=== PATIENT | male | born 1960 | race Caucasian/White ===

== ENCOUNTER 2018-02-19 13:51 | Emergency (ER) | payer OTHER ==
[2018-02-19] MEDS ORDERED: XYLOCAINE 1% HCL 20 ML MDV IJ ONE (14:16)
[2018-02-19] MEDS ORDERED: Adacel Vial IM ONE ×2 (14:16→14:23)
[2018-02-19] MEDS ORDERED: BACIGUENT PACKET TP ONE (14:16)
[2018-02-19] MEDS ORDERED: XYLOCAINE 1% HCL 20 ML MDV ONE ×2 (14:18→15:03)
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
[2018-02-19] MEDS ORDERED: BACIGUENT PACKET ONE (15:19)
[2018-02-19 15:32] VITALS: BP 141/88; O2SAT 95
[2018-02-19 16:04] VITALS: PULSE 80
== END 2018-02-19 16:02 | disposition home or self-care (01) ==
LOC: ED 13:51
PROC: 0HQ1XZZ Repair Face Skin, External Approach (ICD-10-PCS; principal; 2018-02-19)
PROC: 0CQ0XZZ Repair Upper Lip, External Approach (ICD-10-PCS; 2018-02-19)
DX: S01.511A Laceration without foreign body of lip, initial encounter (principal); S01.81XA Laceration without foreign body of other part of head, initial encounter; W29.8XXA Contact with other powered hand tools and household machinery, initial encounter; Y93.H3 Activity, building and construction
CPT/HCPCS: 12014; 90471; 90715; 99284; 99291; A9270-GY

== ENCOUNTER 2019-07-24 05:34 | Day surgery (SDC) | payer OTHER ==
[2019-07-24] MEDS ORDERED: DIPRIVAN 200 MG/20 ML IV ONE ×2 (06:55→07:55)
[2019-07-24] MEDS ORDERED: Ketamine HCl 50 MG/ML ONE (06:56)
[2019-07-24] MEDS ORDERED: Lactated Ringers 1,000 ML IV SCH (07:00)
[2019-07-24 08:39] VITALS: O2SAT 95
[2019-07-24 08:46] VITALS: BP 120/77; PULSE 74
--- NOTE | 2019-07-24 09:59 | OP ---
SURGERY DATE/TIME: 07/24/2019 0742 PREOPERATIVE DIAGNOSIS: Screening exam. POSTOPERATIVE DIAGNOSIS: Normal colon. PROCEDURE: Colonoscopy. SURGEON: Dr. Kruse. ANESTHESIA: MAC. Medications given by anesthesia department. HISTORY: The patient is a 59 year-old white male patient presenting now for his first screening colonoscopy. The patient was appraised of the risks of the procedure including the risk of perforation, phlebitis, untoward reaction to medication, bleeding and missed lesions. The patient verbalized his understanding and desired to have the procedure performed. DESCRIPTION OF PROCEDURE: The patient was given the medications by the anesthesia department. He had continuous pulse oximetry, ECG monitoring, intermittent blood pressure monitoring and tidal CO2 monitoring during the examination. He was placed in the left lateral decubitus position. A digital rectal examination was performed and revealed mild external hemorrhoids, normal anal sphincter tone, no masses and normal prostate. The flexible Olympus pediatric colonoscope was used to intubate the rectum. A view of the colon was developed sequentially to the cecum. Upon insertion and withdrawal, including a retroflex view in the rectum, no mucosal lesions were encountered. The scope was removed from the patient who tolerated the procedure well and was sent back to OP recovery in good condition. The prep was noted to be good.
== END 2019-07-24 08:55 | disposition home or self-care (01) ==
LOC: SDC 05:34
PROVIDERS: ATTEND Family Medicine
DX: Z12.11 Encounter for screening for malignant neoplasm of colon (principal); K64.4 Residual hemorrhoidal skin tags
CPT/HCPCS: 94250; J2704

== ENCOUNTER 2020-10-27 18:23 | Emergency (ER) | payer OTHER ==
--- NOTE | 2020-10-27 18:39 | ERPHSYRPT ---
- History of Present Illness Time Seen by Provider: 10/27/20 18:38 Source: patient Exam Limitations: no limitations Physician History: This is a 60-year-old white male who presents with worsening shortness of breath, cough and fever for the last 2 days. Patient is a [id number] smoker. He continues to smoke daily. Patient was seen by his primary care physician, Dr. Ambrocio, on 10/15/2020 and a chest x-ray was obtained which showed a right apical masslike opacity present. On 10/21/2020 patient underwent a CAT scan of the chest which showed a multiloculated right apical masslike opacity with fluid leveling which can be seen with post primary tuberculosis and pulmonary bacterial abscess/cavity. Malignancy can have the same appearance. Patient was scheduled to see a b2b outside sales representative on 11/03/2020. Patient was given a prescription for a Z-Adiel and steroids. This helped him tremendously. However in the last 2 days his symptoms have recurred worsened. Patient presents with fever mild tachycardia. He does not want to be admitted in the hospital per his report Timing/Duration: day(s) Activities at Onset: activity Severity of Dyspnea-Max: mild Severity of Dyspnea-Current: mild Possible Cause: occasional episodes Modifying Factors: Improves With: activity, coughing Associated Symptoms: chest pain/discomfort, productive cough Allergies/Adverse Reactions: shrimp Adverse Reaction (Intermediate, Verified 10/27/20 18:41) Stomach Pain acetaminophen [From Vicodin] Adverse Reaction (Mild, Verified 10/27/20 18:41) Nausea and Vomiting hydrocodone [From Vicodin] Adverse Reaction (Mild, Verified 10/27/20 18:41) Nausea and Vomiting Home Medications: Tamsulosin HCl 0.4 mg [Flomax 0.4 MG] 0.4 mg PO DAILY 07/15/19 [History] Albuterol 2.5 mg/0.5 ml [PROVENTIL Solution 2.5 MG/0.5 ML] 2.5 mg IH Q4HPRN PRN 10/27/20 [History] Hx Tetanus, Diphtheria Vaccination/Date Given: No Hx Influenza Vaccination/Date Given: No Hx Pneumococcal Vaccination/Date Given: No Travel Risk - International Travel Have you traveled outside of the country in past 3 weeks: No - Coronavirus Screening Are you exhibiting any of the following symptoms?: No Close contact with a COVID-19 positive Pt in past 14-21 Days: No - Review of Systems Constitutional: Fever Eyes: No Symptoms Ears, Nose, & Throat: No Symptoms Respiratory: Cough, Dyspnea on Exertion (LEGER) Cardiac: Chest Pain (Bilateral anterior chest wall. No radiation) Abdominal/Gastrointestinal: No Symptoms Genitourinary Symptoms: No Symptoms Musculoskeletal: No Symptoms Skin: No Symptoms Neurological: No Symptoms Psychological: No Symptoms Endocrine: No Symptoms Hematologic/Lymphatic: No Symptoms Immunological/Allergic: No Symptoms All Other Systems: Reviewed and Negative - Past Medical History Pertinent Past Medical History: Yes Neurological History: No Pertinent History ENT History: No Pertinent History Cardiac History: Hypertension Respiratory History: No Pertinent History Endocrine Medical History: No Pertinent History Musculoskeletal History: Arthritis GI Medical History: No Pertinent History History: No Pertinent History Psycho-Social History: No Pertinent History Male Reproductive Disorders: Prostate Problems - Past Surgical History Past Surgical History: No Neuro Surgical History: No Pertinent History Cardiac: No Pertinent History Respiratory: No Pertinent History Gastrointestinal: No Pertinent History Genitourinary: No Pertinent History Musculoskeletal: No Pertinent History Male Surgical History: No Pertinent History - Social History Smoking Status: Current every day smoker How long have you smoked: 41yrs Exposure to second hand smoke: Yes Drug Use: none Patient Lives Alone: No - Nursing Vital Signs Nursing Vital Signs: Initial Vital Signs Temperature 100.2 F 10/27/20 18:26 Pulse Rate 114 H 10/27/20 18:26 Respiratory Rate 18 10/27/20 18:26 Blood Pressure 142/85 10/27/20 18:26 O2 Sat by Pulse Oximetry 95 10/27/20 18:26 Pain Scale Pain Intensity 0 - Physical Exam General Appearance: no apparent distress, alert, anxiety Eye Exam: PERRL/EOMI, eyes nml inspection Ears, Nose, Throat Exam: hearing grossly normal Neck Exam: normal inspection, non-tender, supple, full range of motion Respiratory Exam: normal breath sounds, chest tenderness, lungs clear, airway intact, No respiratory distress Cardiovascular/Chest Exam: tachycardia Abdominal/Gastrointestinal Exam: soft, normal bowel sounds, No tenderness Rectal Exam: not done Extremity Exam: non-tender, normal range of motion, normal inspection, normal capillary refill, no calf tenderness, no pedal edema, pelvis stable Neurologic Exam: alert, oriented x 3, cooperative, 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 No comparison EKG present or available) Ordered Tests: Active Orders 24 hr Category Date Time Status Doctor Of Osteopathy STAT Care 10/27/20 18:47 Active EKG-ER Only STAT Care 10/27/20 18:47 Active IV Insertion STAT Care 10/27/20 18:47 Active Pulse Oximetry (ED) STAT Care 10/27/20 18:47 Active CHEST 1 VIEW (PORTABLE) Stat Exams 10/27/20 18:47 Taken BLOOD CULTURE Stat Lab 10/27/20 19:00 Received CBC W DIFF Stat Lab 10/27/20 19:10 Completed CMP Stat Lab 10/27/20 19:10 Completed INFLUENZA A+B ALICIA Stat Lab 10/27/20 19:10 Completed Lactic Acid Stat Lab 10/27/20 18:47 Completed TROPONIN Q3H Lab 10/27/20 19:10 Completed TROPONIN Q3H Lab 10/27/20 22:00 Ordered TROPONIN Q3H Lab 10/28/20 01:00 Ordered TROPONIN Q3H Lab 10/28/20 04:00 Ordered TROPONIN Q3H Lab 10/28/20 07:00 Ordered Medication Summary Discontinued Medications Generic Name Dose Route Start Last Admin Trade Name Freq PRN Reason Stop Dose Admin Ceftriaxone Sodium/Dextrose 1 g in 50 mls @ 100 mls/hr 10/27/20 18:47 10/27/20 19:36 Rocephin 1 Gm-D5w 50 Ml Bag IV 10/27/20 19:16 100 mls/hr STAT STA 100 mls/hr Administration Ceftriaxone Sodium/Dextrose Confirm 10/27/20 19:31 Rocephin 1 Gm-D5w 50 Ml Bag Administered 10/27/20 19:32 Dose 1 g in 50 mls @ ud IV .STK-MED ONE Methylprednisolone Sodium Succinate 125 mg 10/27/20 18:47 10/27/20 19:36 Solu-Medrol 125 Mg IV 10/27/20 18:48 125 mg STAT ONE Administration Methylprednisolone Sodium Succinate Confirm 10/27/20 19:31 Solu-Medrol 125 Mg Administered 10/27/20 19:32 Dose 125 mg .ROUTE .STK-MED ONE Ondansetron HCl 4 mg 10/27/20 18:47 10/27/20 19:36 Zofran 4 Mg/2 Ml Vial IV 10/27/20 18:48 4 mg STAT ONE Administration Ondansetron HCl Confirm 10/27/20 19:30 Zofran 4 Mg/2 Ml Vial Administered 10/27/20 19:31 Dose 4 mg .ROUTE .STK-MED ONE Lab/Rad Data: Laboratory Result Diagrams 10/27/20 19:10 10/27/20 19:10 Laboratory Results 10/27/20 10/27/20 10/27/20 Range/Units 19:10 19:10 19:10 WBC (4.0-10.5) K/mm3 RBC (4.1-5.6) M/mm3 Hgb (12.5-18.0) gm/dl Hct (42-50) % MCV (78-100) fl MCH (26-32) pg MCHC (32-36) g/dl RDW (11.5-14.0) % Plt Count (150-450) K/mm3 MPV (7.5-11.0) fl Gran % (36.0-66.0) % Eos # (Auto) (0-0.5) Absolute Lymphs (auto) (1.0-4.6) Absolute Monos (auto) (0.0-1.3) Lymphocytes % (24.0-44.0) % Monocytes % (0.0-12.0) % Eosinophils % (0.00-5.0) % Basophils % (0.0-0.4) % Absolute Granulocytes (1.4-6.9) Basophils # (0-0.4) Sodium (137-145) mmol/L Potassium (3.5-5.1) mmol/L Chloride (98-107) mmol/L Carbon Dioxide (22-30) mmol/L Anion Gap (5-15) MEQ/L BUN (9-20) mg/dL Creatinine (0.66-1.25) mg/dL Estimated GFR ML/MIN Glucose (74-106) mg/dL Lactic Acid (0.4-2.0) Calcium (8.4-10.2) mg/dL Total Bilirubin (0.2-1.3) mg/dL AST (17-59) U/L ALT (0-50) U/L Alkaline Phosphatase (38-126) U/L Troponin I < 0.012 (0.000-0.034) ng/mL Serum Total Protein (6.3-8.2) g/dL Albumin (3.5-5.0) g/dL Influenza Type A Ag NEGATIVE (NEGATIVE) Influenza Type B Ag NEGATIVE (NEGATIVE) Group A Strep Antibody NOT DETECTED (NEGATIVE) 10/27/20 10/27/20 10/27/20 Range/Units 19:10 19:10 18:47 WBC 19.4 H (4.0-10.5) K/mm3 RBC 4.45 (4.1-5.6) M/mm3 Hgb 13.0 (12.5-18.0) gm/dl Hct 40.6 L (42-50) % MCV 91.2 (78-100) fl MCH 29.2 (26-32) pg MCHC 32.0 (32-36) g/dl RDW 14.7 H (11.5-14.0) % Plt Count 419 (150-450) K/mm3 MPV 9.8 (7.5-11.0) fl Gran % 86.3 H (36.0-66.0) % Eos # (Auto) 0.03 (0-0.5) Absolute Lymphs (auto) 1.48 (1.0-4.6) Absolute Monos (auto) 1.11 (0.0-1.3) Lymphocytes % 7.6 L (24.0-44.0) % Monocytes % 5.7 (0.0-12.0) % Eosinophils % 0.2 (0.00-5.0) % Basophils % 0.2 (0.0-0.4) % Absolute Granulocytes 16.74 H (1.4-6.9) Basophils # 0.04 (0-0.4) Sodium 136 L (137-145) mmol/L Potassium 3.6 (3.5-5.1) mmol/L Chloride 103 (98-107) mmol/L Carbon Dioxide 20 L (22-30) mmol/L Anion Gap 16.6 H (5-15) MEQ/L BUN 16 (9-20) mg/dL Creatinine 0.76 (0.66-1.25) mg/dL Estimated GFR > 60.0 ML/MIN Glucose 114 H (74-106) mg/dL Lactic Acid 0.7 (0.4-2.0) Calcium 9.1 (8.4-10.2) mg/dL Total Bilirubin 0.70 (0.2-1.3) mg/dL AST 22 (17-59) U/L ALT 21 (0-50) U/L Alkaline Phosphatase 91 (38-126) U/L Troponin I (0.000-0.034) ng/mL Serum Total Protein 7.3 (6.3-8.2) g/dL Albumin 3.9 (3.5-5.0) g/dL Influenza Type A Ag (NEGATIVE) Influenza Type B Ag (NEGATIVE) Group A Strep Antibody (NEGATIVE) - Progress Progress: re-examined Air Movement: good Progress Note: 10/27/20 19:54 Chest x-ray shows a larger right upper lobe opacity when compared to that chest x-ray dated 10/15/2020 10/27/20 20:29 Medical decision making: This patient has a cavitary opacity with air-fluid level in the right upper lobe. I reviewed the results of his chest x-ray and the CAT scan that was performed on 10/21/2020 with the patient. He is aware that this could be a malignancy, bacterial infection or possibly tuberculosis. Patient does not want to stay in any hospital. I contacted the patient's primary care physician, Dr. Ambrocio. He suggested that I contact pulmonology. I called Dr. Aranda who is on-call for Dr. Briceno. We are assuming that that was who this patient has an appointment with on 11/03/2020. Dr. Aranda believes that the patient will likely need a bronchoscopy. He states to provide the patient with a different antibiotic than the Z-Adiel that was given to him approximately 10 days ago. He also states there is no need at this time to treat a possible tuberculosis. He also states do not give the patient any more steroids. The patient wants to go home. I discussed with him the risks of going home and that his symptoms may worsen and this could even lead to . Patient does not want to be transferred to any facility or be admitted into any facility at this time. He will sign an AMA form. Blood Culture(s) Obtained: Yes Antibiotics given: Yes Discussed with : Aide, Other (Dr. Sotoapulmonologist) Counseled pt/family regarding: lab results, diagnosis, need for follow-up, rad results - Departure Departure Disposition: AMA Clinical Impression: Cavitating mass in right upper lung lobe Condition: Stable Critical Care Time: No Referrals: LINDSAY AMBROCIO [Primary Care Provider] - Additional Instructions: Drink plenty of fluids. Take your medication as prescribed. Use your albuterol inhaler. Call Dr. Ambrocio's office tomorrow to make arrangements to contact the b2b outside sales representative to see if you can be evaluated sooner than 11/03/2020. Return to the emergency room if your symptoms worsen. Prescriptions: Levofloxacin [Levaquin 500 MG Tablet] 500 mg PO DAILY #7 tablet
[2020-10-27] MEDS ORDERED: Zofran 4 MG/2 ML VIAL IV ONE (18:47)
[2020-10-27] MEDS ORDERED: solu-MEDROL 125 MG IV ONE (18:47)
[2020-10-27] MEDS ORDERED: ROCEPHIN 1 Gm-D5w 50 ml Bag** 1 G/50 ML IVPB IV STA (18:47)
[2020-10-27 19:23] LABS: Absolute Neutrophil Ct (ANC) 16.74 (1.4-6.9); BASOPHIL % 0.2 % (0.0-0.4); Basophil (Absolute #) 0.04 (0-0.4); Eosinophil % 0.2 % (0.00-5.0); Eosinophil (Absolute #) 0.03 (0-0.5); Hematocrit 40.6 % (42-50); Lymphocyte (Absolute #) 1.48 (1.0-4.6); Lymphocytes % 7.6 % (24.0-44.0); Mean Cell Volume 91.2 fl (78-100); Mean Corpuscular Hemoglobin 29.2 pg (26-32); Mean Platelet Volume 9.8 fl (7.5-11.0); Monocyte (Absolute #) 1.11 (0.0-1.3); Monocytes % 5.7 % (0.0-12.0); Neutrophil % 86.3 % (36.0-66.0); Platelet Count 419 K/mm3 (150-450); Red Blood Count 4.45 M/mm3 (4.1-5.6); Red Cell Distribution Width 14.7 % (11.5-14.0); White Blood Count 19.4 K/mm3 (4.0-10.5)
[2020-10-27] MEDS ORDERED: Zofran 4 MG/2 ML VIAL ONE (19:30)
[2020-10-27] MEDS ORDERED: solu-MEDROL 125 MG ONE (19:31)
[2020-10-27] MEDS ORDERED: ROCEPHIN 1 Gm-D5w 50 ml Bag** 1 G/50 ML IVPB IV ONE (19:31)
[2020-10-27 19:47] LABS: ALBUMIN 3.9 g/dL (3.5-5.0); ALKALINE PHOSPHATASE 91 U/L (38-126); ANION GAP 16.6 MEQ/L (5-15); BLOOD UREA NITROGEN 16 mg/dL (9-20); CHLORIDE 103 mmol/L (98-107); Calcium 9.1 mg/dL (8.4-10.2); Carbon Dioxide 20 mmol/L (22-30); Creatinine 1 0.76 mg/dL (0.66-1.25); EST GLOMERULAR FILTRATION RATE > 60.0 ML/MIN; Glucose 114 mg/dL (74-106); Potassium 3.6 mmol/L (3.5-5.1); SGOT/AST 22 U/L (17-59); SGPT/ALT 21 U/L (0-50); SODIUM 136 mmol/L (137-145); Total Protein 7.3 g/dL (6.3-8.2)
[2020-10-27 20:12] LABS: INFLUENZA A NEGATIVE (NEGATIVE); INFLUENZA B NEGATIVE (NEGATIVE)
[2020-10-27 20:54] LABS: Slide Review 1 YES
[2020-10-27 21:02] VITALS: BP 135/86; PULSE 98; O2SAT 98
--- NOTE | 2020-10-28 09:23 | XRAY ---
Indication: Right chest pain. Comparison: October 15, 2020. Portable chest demonstrates moderately enlarging right upper lobe masslike opacity as detailed on recent CT chest October 21, 2020. Remaining heart and lungs are unremarkable again with COPD.
== END 2020-10-27 20:55 | disposition left against medical advice (07) ==
LOC: ED 18:23
DX: A15.0 Tuberculosis of lung (principal); R06.02 Shortness of breath; R50.9 Fever, unspecified; R05 Cough; F17.200 Nicotine dependence, unspecified, uncomplicated; R07.89 Other chest pain; Z79.899 Other long term (current) drug therapy
CPT/HCPCS: 36000; 36415; 71045; 80053; 83605; 84484; 85025; 87040; 87400; 87651; 93005; 93041; 94760; 96365; 96374; 96375; 99284; J0696; J2405; J2930